=== PATIENT | male | born 1965 | race Caucasian/White ===

== ENCOUNTER 2021-07-20 23:21 | Observation (INO) ==
[2021-07-20] MEDS ORDERED: ALUM/MAG/SIMETH/LIDO VISC 1:1 30 ML BOTTLE PO STA (23:48)
[2021-07-20] MEDS ORDERED: NITROGLYCERIN 2% OINT 1 INCH/GM PACK TOP STA (23:48)
[2021-07-20] MEDS ORDERED: ONDANSETRON 4 MG/2 ML VIAL IV STA (23:48)
[2021-07-20] MEDS ORDERED: ASPIRIN 325 MG TABLET PO STA (23:48)
[2021-07-20] MEDS ORDERED: MORPHINE 2 MG/1 ML SYRINGE IV STA (23:48)
[2021-07-21 00:10] LABS: Basophils # 0.1 10*3/uL (0.0-0.2); Basophils % 1.1 % (0.0-0.8); Eosinophils # 0.2 10*3/uL (0.0-0.87); Eosinophils % 2.9 % (0.00-10.9); Hematocrit 44.8 VOL% (42.0-52.0); Hemoglobin 15.4 GM/DL (14.0-18.0); Immature Granulocytes % 0.3 %; Immature Granulocytes Absolute 0.02 #; Lymphocytes # 1.3 10*3/uL (1.4-4.0); Lymphocytes % 17.5 % (21.2-54.2); Mean Corpuscular HGB Conc 34.4 GM/DL (32-36); Mean Corpuscular Volume 95.5 FL (87-102); Mean Platelet Volume 9.6 FL (9.6-12.0); Monocytes % 10.8 % (1.7-12.7); Neutrophils % 67.4 % (38.7-73.9); Platelet Count 302 T/CUMM (130-400); Red Blood Count 4.69 MC/CUMM (3.8-5.5); Red Cell Distribution Width 12.5 % (9.3-17.3); White Blood Count 7.2 T/CUMM (4-12)
[2021-07-21 00:22] LABS: Albumin 3.1 G/DL (3.4-5.0); Bilirubin,Total 0.8 MG/DL (0.20-1.00); Calcium 8.8 MG/DL (8.5-10.1); Osmolality,Calculated 281.4 MOS/KG (273-304); Potassium 4.5 MMOL/L (3.5-5.1)
[2021-07-21 00:25] LABS: PT Patient Result 11.4 SECS (10.5-12.0)
[2021-07-21] MEDS ORDERED: ENOXAPARIN 120 MG/0.8 ML SYRINGE SUBCUT STA (00:29)
[2021-07-21] MEDS ORDERED: NITROGLYCERIN SL 0.4 MG TABLET SL PRN (00:38)
[2021-07-21] MEDS ORDERED: MAGNESIUM SULF RIDER 2 GM/50 ML PREMIX IV PRN (00:38)
[2021-07-21] MEDS ORDERED: ONDANSETRON 4 MG/2 ML VIAL IV PRN (00:38)
[2021-07-21] MEDS ORDERED: POTASSIUM CHLORIDE RIDER 10 MEQ/100 ML PREMIX IV PRN (00:38)
[2021-07-21] MEDS ORDERED: GLUCAGON 1 MG VIAL IM PRN (00:38)
[2021-07-21] MEDS ORDERED: MAGNESIUM SULF RIDER 4 GM/100 ML PREMIX IV PRN (00:38)
[2021-07-21] MEDS ORDERED: POTASSIUM CHLORIDE 20 MEQ TABLET PO PRN (00:38)
[2021-07-21] MEDS ORDERED: MORPHINE 2 MG/1 ML SYRINGE IV PRN (00:38)
[2021-07-21] MEDS ORDERED: INSULIN REGULAR 100 UNIT/ML SUBCUT STA (00:52)
[2021-07-21] MEDS ORDERED: DEXTROSE 10% 250 ML BAG IV PRN (00:56)
[2021-07-21] MEDS ORDERED: ASPIRIN CHEW 81 MG TABLET PO STA (01:24)
[2021-07-21 05:05] LABS: Risk Ratio 5.74; Thyroid Stimulating Hormone 0.978 uIU/ml (0.358-3.74); VLDL Cholesterol 33.8 MG/DL
[2021-07-21] MEDS ORDERED: TICAGRELOR 90 MG TABLET PO ONE (06:25)
[2021-07-21] MEDS ORDERED: FUROSEMIDE 40 MG/4 ML VIAL IV ONE (06:54)
[2021-07-21 08:11] LABS: Albumin 2.7 G/DL (3.4-5.0); Basophils # 0.1 10*3/uL (0.0-0.2); Basophils % 0.9 % (0.0-0.8); Bilirubin,Total 0.4 MG/DL (0.20-1.00); Eosinophils # 0.2 10*3/uL (0.0-0.87); Eosinophils % 3.7 % (0.00-10.9); Hematocrit 42.9 VOL% (42.0-52.0); Hemoglobin 14.7 GM/DL (14.0-18.0); Immature Granulocytes % 0.3 %; Immature Granulocytes Absolute 0.02 #; Lymphocytes # 1.7 10*3/uL (1.4-4.0); Mean Corpuscular HGB Conc 34.3 GM/DL (32-36); Mean Corpuscular Volume 95.5 FL (87-102); Monocytes % 10.2 % (1.7-12.7); Neutrophils % 58.9 % (38.7-73.9); Osmolality,Calculated 280.2 MOS/KG (273-304); Platelet Count 277 T/CUMM (130-400); Potassium 4.6 MMOL/L (3.5-5.1); Red Blood Count 4.49 MC/CUMM (3.8-5.5); Red Cell Distribution Width 12.7 % (9.3-17.3); Total Protein 6.7 G/DL (6.4-8.2); White Blood Count 6.5 T/CUMM (4-12)
[2021-07-21] MEDS ORDERED: ASPIRIN EC 325 MG TABLET PO SCH (09:00)
[2021-07-21] MEDS: PANTOPRAZOLE 40 MG TABLET PO SCH (09:17)
[2021-07-21] MEDS: lisinopriL 10 MG TABLET PO SCH (09:17)
[2021-07-21] MEDS: METOPROLOL TARTRATE 25 MG TABLET PO SCH ×2 (09:20→20:16)
[2021-07-21] MEDS ORDERED: SODIUM CHLORIDE 0.9% 1,000 ML IV SCH (09:30)
[2021-07-21] MEDS ORDERED: DIAZEPAM 5 MG TABLET PO ONE (09:30)
[2021-07-21] MEDS ORDERED: diphenhydrAMINE CAP 50 MG CAPSULE PO ONE (09:30)
[2021-07-21] MEDS: INSULIN REGULAR 100 UNIT/ML SUBCUT SCH ×4 (10:04→20:53)
[2021-07-21] MEDS ORDERED: HEPARIN/NACL 0.9% 2 UNITS/ML 2,000 UNIT/1,000 ML BAG IV ONE (10:31)
[2021-07-21] MEDS ORDERED: NITROGLYCERIN DRIP 50 MG/250 ML BOTTLE IV ONE (10:31)
[2021-07-21] MEDS ORDERED: VERAPAMIL 5 MG/2 ML VIAL ONE (10:32)
[2021-07-21] MEDS ORDERED: MIDAZOLAM 2 MG/2 ML VIAL ONE (10:45)
[2021-07-21] MEDS ORDERED: HYDROmorphone 1 MG/1 ML SYRINGE ONE (10:45)
[2021-07-21] MEDS ORDERED: ENOXAPARIN 30 MG/0.3 ML SYRINGE ONE (10:51)
[2021-07-21] MEDS ORDERED: TIROFIBAN 5,000 MCG/100 ML PREMIX IV ONE (11:07)
[2021-07-21] MEDS ORDERED: TICAGRELOR 90 MG TABLET ONE (11:34)
[2021-07-21] MEDS: ENOXAPARIN 150 MG/ML SYRINGE SUBCUT SCH (14:21)
[2021-07-21] MEDS: TICAGRELOR 90 MG TABLET PO SCH (20:53)
[2021-07-21] MEDS ORDERED: INSULIN GLARGINE 100 UNIT/ML SUBCUT SCH (21:00)
[2021-07-21] MEDS ORDERED: ATORVASTATIN 40 MG TABLET PO SCH (21:00)
[2021-07-22 03:34] LABS: Bilirubin,Urine Negative (Negative); Blood, Urine Negative (Negative); Glucose,Urine (UA) >=1000 mg/dL (Negative); Ketones,Urine Negative (Negative); Nitrite,Urine Negative (Negative); Protein,Urine 30 mg/dL (Negative); Urine Appearance Clear (Clear); Urine Color Yellow (Yellow); Urine Urobilinogen 0.2 eU/dL (<2.0)
[2021-07-22 03:35] LABS: Mucus,Urine Occasional /LPF (Occasional); RBC,Urine 2 /HPF (0-4); Squamous Epithelial Cell,Urine Occasional /HPF (0-10)
[2021-07-22 05:16] LABS: Basophils # 0.1 10*3/uL (0.0-0.2); Basophils % 0.7 % (0.0-0.8); Eosinophils # 0.2 10*3/uL (0.0-0.87); Eosinophils % 3.1 % (0.00-10.9); Hematocrit 42.3 VOL% (42.0-52.0); Hemoglobin 14.1 GM/DL (14.0-18.0); Immature Granulocytes % 0.3 %; Immature Granulocytes Absolute 0.02 #; Lymphocytes % 14.1 % (21.2-54.2); Mean Corpuscular HGB Conc 33.3 GM/DL (32-36); Mean Corpuscular Volume 97.5 FL (87-102); Mean Platelet Volume 9.7 FL (9.6-12.0); Monocytes % 12.1 % (1.7-12.7); Neutrophils % 69.7 % (38.7-73.9); Platelet Count 290 T/CUMM (130-400); Red Blood Count 4.34 MC/CUMM (3.8-5.5); Red Cell Distribution Width 12.6 % (9.3-17.3); White Blood Count 6.8 T/CUMM (4-12)
[2021-07-22 05:32] LABS: Calcium 8.8 MG/DL (8.5-10.1); Osmolality,Calculated 279.2 MOS/KG (273-304); Potassium 4.1 MMOL/L (3.5-5.1)
[2021-07-22 05:39] LABS: Albumin 2.5 G/DL (3.4-5.0); Bilirubin,Total 0.6 MG/DL (0.20-1.00); Calcium 8.8 MG/DL (8.5-10.1); Osmolality,Calculated 281.1 MOS/KG (273-304); Total Protein 6.5 G/DL (6.4-8.2)
[2021-07-22] MEDS: ENOXAPARIN 150 MG/ML SYRINGE SUBCUT SCH (06:42)
[2021-07-22 07:52] VITALS: BP 98/62
[2021-07-22] MEDS ORDERED: ASPIRIN EC 81 MG TABLET PO SCH (09:00)
[2021-07-22] MEDS: PANTOPRAZOLE 40 MG TABLET PO SCH (09:07)
[2021-07-22] MEDS: INSULIN REGULAR 100 UNIT/ML SUBCUT SCH (09:08)
[2021-07-22] MEDS: TICAGRELOR 90 MG TABLET PO SCH (09:08)
[2021-07-22] MEDS: METOPROLOL TARTRATE 25 MG TABLET PO SCH (09:13)
[2021-07-22] MEDS: lisinopriL 10 MG TABLET PO SCH (09:13)
[2021-07-23] MEDS ORDERED: ENOXAPARIN 40 MG/0.4 ML SYRINGE SUBCUT SCH (09:00)
== END 2021-07-22 14:05 | disposition home or self-care (01) ==
LOC: N.ED 23:21 → N.EDINP 23:21 → N.TELES 07-21 03:11
PROVIDERS: ADMIT Internal Medicine; ATTEND Internal Medicine
PROC: CLCCHCL (ICD-10-PCS; 2021-07-21 11:45)